=== PATIENT | male | born 1970 | race African-American/Black ===

== ENCOUNTER 2016-11-22 20:17 | Emergency (ER) | payer MEDICAID ==
[~2016-11-22] VITALS: Ht 180.3 cm; Wt 104.3 kg
[2016-11-22] MEDS ORDERED: IBUPROFEN 400 MG TAB PO ONE (21:45)
[2016-11-22 22:55] VITALS: BP 134/84
== END 2016-11-23 00:30 | disposition home or self-care (01) ==
LOC: ER 20:22
DX: B34.9 Viral infection, unspecified (principal); K59.00 Constipation, unspecified; F41.9 Anxiety disorder, unspecified
CPT/HCPCS: 74000